=== PATIENT | male | born 1970 | race African-American/Black ===

== ENCOUNTER 2018-02-06 10:13 | Emergency (ER) | payer MEDICAID ==
[~2018-02-06] VITALS: Ht 172.7 cm; Wt 73.0 kg
[~2018-02-06 10:13] MED LIST: FERR-63 PO; OMEP20TA2 PO; SENN1TAB86 PO; SUCR1TAB PO
[2018-02-06 11:24] LABS: BASOPHILS % 0.3 % (0.0-2.0); EOSINOPHILS % 2.7 % (0.0-5.0); HEMATOCRIT. 30.3 % (42.0-52.0); HEMOGLOBIN. 10.3 g/dL (14.0-18.0); LYMPHOCYTES % 30.9 % (20.0-50.0); MEAN CORPUSCULAR HEMOGLOBIN 31.1 pg (28.0-32.0); MEAN PLATELET VOLUME 6.6 fl (7.4-10.4); MONOCYTES % 6.8 % (2.0-8.0); NEUTROPHILS % 59.3 % (40.0-76.0); PLATELET 357 x1000/uL (130-400); RED BLOOD CELL COUNT 3.33 mill/uL (4.7-6.1)
[2018-02-06 11:26] LABS: CHLORIDE 104 mEq/L (98-107)
[2018-02-06] MEDS ORDERED: FAMOTIDINE 20MG/2ML VIAL IV STA (11:44)
[2018-02-06] MEDS ORDERED: VISCOUS LIDOCAINE 2% 15 ML UDC PO STA (12:40)
[2018-02-06] MEDS ORDERED: DICYCLOMINE 10 MG/5 ML ORAL SYR PO STA (12:40)
[2018-02-06] MEDS ORDERED: MAGNESIUM/ALUMINUM HYDROXIDE/SIMETHICONE 30ML UDC PO STA (12:40)
[2018-02-06 12:58] VITALS: BP 116/81
== END 2018-02-06 13:05 | disposition home or self-care (01) ==
LOC: ER 10:46
DX: K25.4 Chronic or unspecified gastric ulcer with hemorrhage (principal); F17.200 Nicotine dependence, unspecified, uncomplicated
CPT/HCPCS: 36415; 71045; 80053; 83880; 84484; 85025; 85610; 86850; 86900; 86901; 93005; 96374; 99285; J3490; Z7610